=== PATIENT | male | born 1975 | race Caucasian/White ===

== ENCOUNTER 2020-09-15 09:52 | Emergency (ER) | payer OTHER ==
[~2020-09-15] VITALS: Ht 177.8 cm; Wt 82.6 kg
[2020-09-15] MEDS ORDERED: LIPITOR40 MG (10:13)
[2020-09-15] MEDS ORDERED: MECLIZINE HCL25 MG PO (13:44)
== END 2020-09-15 14:14 | disposition home or self-care (01) ==
LOC: ER 09:52
DX: R42 Dizziness and giddiness (principal); R51.9 Headache, unspecified; Z03.818 Encounter for observation for suspected exposure to other biological agents ruled out